=== PATIENT | male | born 1945 | race Caucasian/White ===

== ENCOUNTER 2017-02-21 08:47 | Emergency (ER) | payer MEDICARE, MEDICAID ==
[2016-05-17 16:10] VITALS: BMI 19.8
[~2017-02-21 08:47] MED LIST: ADVAIR HFA [SP]12 GM INH; ALLEGRA ALLERG180 MG PO; ASPIRIN81 MG PO; ATIVAN0.5 MG PO; BAYER CHEWABLE81 MG PO; CELEXA40 MG PO; COLACE100 MG PO; DONEPEZIL 10 MG PO; DRISDOL50000 UNIT PO; DUONEB 2.5-0.5 M3 ML UPD; ECOTRIN325 MG PO; GEODON20 M1 IM; IMDUR30 MG PO; MELATONIN 3 MG1 TAB PO; MULTIPLE VITAMI1 TA1 PO; NAMENDA10 MG PO; NICOTROL IH; OFIRMEV IV; ONDANSETRON4 MG/2 M3 IV; PLAVIX75 MG; PLAVIX75 MG PO; PROVENTIL HFA6.7 GM INH; RISPERDAL0.25 MG PO; SOLU-MEDRO40 MG/1 M1 IV; SYMBICORT 16010.2 GM INH; TOPROL XL25 MG PO; VITAMIN D31000 UNIT PO; [UNRECOGNIZED DRUG - OTHER] IV
[2017-02-21 09:22] LABS: BASOPHILS 0.4 % (0-2); EOSINOPHILS 2.8 % (0-7); HEMATOCRIT 40.4 % (42.0-54.0); HEMOGLOBIN 12.7 g/dL (13.5-17.5); IMMATURE GRANULOCYTES 0.4 % (0-5); LYMPHOCYTES 15.2 % (15-50); MCHC 31.4 g/dL (31.0-37.0); MCV 89.2 fL (80.0-100.0); MEAN PLATELET VOLUME 9.1 fL (7.4-10.4); MONOCYTES 6.5 % (2-11); NEUTROPHILS 74.7 % (40-80); PLATELET COUNT 213 10x3/uL (130-400); RBC 4.53 10x6/uL (4.20-6.10); RDW 14.6 % (11.5-14.5)
[2017-02-21 09:44] LABS: ALBUMIN 3.6 g/dL (3.4-5.0); ALKALINE PHOSPHATASE 98 U/L (46-116); ALT (SGPT) 17 U/L (10-68); BILIRUBIN - TOTAL 0.55 mg/dL (0.2-1.3); CALC OSMOLALITY 285 mosm/kg (275-300); CALCIUM 9.2 mg/dL (8.5-10.1); CARBON DIOXIDE 34.6 mmol/L (21.0-32.0); CHLORIDE - SERUM 105 mmol/L (98-107); CREATININE - SERUM 0.9 mg/dL (0.6-1.3); GLUCOSE 102 mg/dL (74-106); POTASSIUM - SERUM 4.1 mmol/L (3.5-5.1); PROTEIN - SERUM 7.2 g/dL (6.4-8.2); SODIUM 143 mmol/L (136-145); UREA NITROGEN 14 mg/dL (7-18); eGFR NON AFRICAN AMERICAN 88 mL/min (90-120)
[2017-02-21 09:56] LABS: CKMB 1.3 U/L (0.0-3.6); CREATINE KINASE 61 UL (21-232)
[2017-02-21 09:57] LABS: TROPONIN-I < 0.017 ng/mL (0.000-0.060)
== END 2017-02-21 10:56 | disposition home or self-care (01) ==
LOC: D.ER 08:47
PROVIDERS: Family Medicine
DX: R07.89 Other chest pain (principal); K21.9 Gastro-esophageal reflux disease without esophagitis; I10 Essential (primary) hypertension; R05 Cough; I45.10 Unspecified right bundle-branch block